=== PATIENT | male | born 1960 | race Caucasian/White ===

== ENCOUNTER → 2018-05-11 | Outpatient (CLI) | payer BC ==
[~2018-05-11] MED LIST: LEVOTHYROXINE PO
[2018-05-12 14:52] LABS: Stool Occult Bld Immuno 1 Negative (NEGATIVE)
== END ==
LOC: OLS 09:08 → LAB SHORT 09:08
PROVIDERS: Internal Medicine
DX: Z12.11 Encounter for screening for malignant neoplasm of colon (principal); Z12.5 Encounter for screening for malignant neoplasm of prostate; E00.0 Congenital iodine-deficiency syndrome, neurological type
CPT/HCPCS: 82274

== ENCOUNTER 2024-04-05 06:40 | Day surgery (SDC) | payer OTHER ==
[2024-04-05] VITALS (13 sets, daily range): BP systolic 92–136; BP diastolic 66–89
[~2024-04-05] VITALS: Ht 180.3 cm; Wt 89.3 kg
[~2024-04-05 06:40] MED LIST changes: +CELE200 PO
[2024-04-05] MEDS ORDERED: Lactated Ringer's 1,000 ML IV SCH (06:45)
[2024-04-05] MEDS ORDERED: propofoL 20 ML IV ONE (07:14)
--- NOTE | 2024-04-05 07:42 | NUR ---
04/05/24 0742 Asif Rodriguez HISTORY, CHART, MEDICATIONS AND ALLERGIES REVIEWED BEFORE START OF PROCEDURE. PATIENT CONFIRMS NPO STATUS AND AGREES WITH SCHEDULED PROCEDURE. 3-LEAD EKG REVIEWED WITH PHYSICIAN PRIOR TO START OF PROCEDURE. MONITOR INTACT WITH CONTINUOUS PULSE OXIMETRY,CAPNOGRAPHY, 3-LEAD EKG, INTERMITTENT BP. SUPPLEMENTAL O2 TO BE TITRATED THROUGHOUT PROCEDURE TO MAINTAIN O2 SATURATION ABOVE 90%. PATIENT DETERMINED TO BE ASA APPROPRIATE FOR PROPOFOL SEDATION PRIOR TO START OF PROCEDURE BY
[2024-04-05] MEDS ORDERED: Midazolam HCl 1MG / ML 2ML Vial ONE (07:44)
--- NOTE | 2024-04-05 08:21 | NUR ---
DISCHARGE NOTE Patient up to Ambulate independently. Gait steady. Discharge instructions reviewed with patient. Patient verbalizes understanding. Copy given to patient to take home. Lungs clear T/O to Auscultation. Discharged via wheelchair to private car for ride home. VSS.
== END 2024-04-05 08:23 | disposition home or self-care (01) ==
LOC: ORSCMMR 06:40 → ORD 07:30 → ORSCMMR 08:23
PROVIDERS: Internal Medicine Gastroenterology
PROC: 0DJD8ZZ Inspection of Lower Intestinal Tract, Via Natural or Artificial Opening Endoscopic (ICD-10-PCS; principal; 2024-04-05 07:30)
DX: Z12.11 Encounter for screening for malignant neoplasm of colon (principal); K57.30 Diverticulosis of large intestine without perforation or abscess without bleeding; M62.89 Other specified disorders of muscle; Z79.899 Other long term (current) drug therapy
CPT/HCPCS: J2250; J2704; J7120

== ENCOUNTER 2025-08-23 14:05 | Day surgery (SDC) | payer OTHER ==
[2025-08-23] VITALS (15 sets, daily range): BP systolic 90–112; BP diastolic 58–72
[~2025-08-23] VITALS: Ht 180.3 cm; Wt 87.3 kg
[2025-08-23] MEDS ORDERED: VANQUISH (14:33)
[2025-08-23] MEDS ORDERED: ACET500 (14:34)
--- NOTE | 2025-08-23 14:42 | NUR ---
Ambulatory in Day SurgeryPre-Op teaching done. Pt verbalizes understanding. History, Chart, Medications and Allergies reviewed before start of procedure.Patient confirms NPO status and agrees with scheduled surgery. Patient States Post-Procedure ride home has been arranged.
--- NOTE | 2025-08-23 15:04 | NUR ---
08/23/25 Emma Son CONFIRMED AND REVIEWED H&P, MEDCICATIONS, ALLERGIES, MEDICAL HISTORY, RESPIRATORY HISTORY, VITAL SIGNS, 3-LEAD EKG, CONSENTS, AND PHYSICIAN ORDERS. PATIENT CONFIRMS NPO STATUS AND AGREES WITH SCHEDULED PROCEDURE. MONITOR INTACT WITH CONTINUOUS PULSE OXIMETRY, CAPNOGRAPHY, 3-LEAD EKG, INTERMITTENT BP. SUPPLEMENTAL O2 TO BE TITRATED THROUGHOUT PROCEDURE TO MAINTAIN O2 SATURATION ABOVE 90%. PATIENT DETERMINED TO BE ASA APPROPRIATE FOR PROPOFOL SEDATION PRIOR TO START OF PROCEDURE BY DR. Marks
[2025-08-23] MEDS ORDERED: ePHEDrine Sulfate 50 MG/ML 1ML Injection ONE (15:09)
[2025-08-23] MEDS ORDERED: Midazolam HCl 1MG / ML 2ML Vial ONE (15:09)
--- NOTE | 2025-08-23 15:57 | NUR ---
TO STEP POST PROCEDURE. DENIES PAIN, NAUSEA, SOB. KAMARI PO WELL. DC'D IV INTACT. VERBALIZED UNDERSTANDING OF DC INSTRUCTION. DC'D VIA WC TO PRIVATE CAR WITH [employer] ARCHITECT.
== END 2025-08-23 15:50 | disposition home or self-care (01) ==
LOC: ORSCMMR 14:05 → ORD 15:15 → ORSCMMR 15:15
PROVIDERS: Family Medicine
PROC: 0DJ08ZZ Inspection of Upper Intestinal Tract, Via Natural or Artificial Opening Endoscopic (ICD-10-PCS; principal; 2025-08-23 15:15)
DX: K92.1 Melena (principal); K44.9 Diaphragmatic hernia without obstruction or gangrene; D50.0 Iron deficiency anemia secondary to blood loss (chronic); E03.8 Other specified hypothyroidism
CPT/HCPCS: J2250; J2704; J7120